=== PATIENT | male | born 1975 | race Caucasian/White ===

== ENCOUNTER 2023-08-23 19:12 | Inpatient (IN) | payer MEDICARE ==
[2023-08-23] MEDS ORDERED: Glucagon 1 MG/ML KIT IM PRN (20:17)
[2023-08-23] MEDS ORDERED: Acetaminophen 650 MG Suppository PR PRN (20:17)
[2023-08-23] MEDS ORDERED: HumaLOG 300 UNITS/3 ML VIAL SC PRN (20:17)
[2023-08-23] MEDS ORDERED: Acetaminophen 325 MG TAB PO PRN (20:17)
[2023-08-23] MEDS ORDERED: Ondansetron PF 4 MG/2 ML Vial IVP PRN (20:17)
[2023-08-23] MEDS ORDERED: Ondansetron ODT 4 MG TAB PO PRN (20:17)
[2023-08-23] MEDS ORDERED: Dextrose 5% in Water 1,000 ML IV PRN (20:17)
[2023-08-23] MEDS ORDERED: Dextrose 50% Abboject 50 ML SYRINGE SLOW IVP PRN (20:17)
[2023-08-23] MEDS: Heparin 5,000 UNITS/ML VIAL SC SCH (20:37)
[2023-08-23] MEDS: Famotidine 20 MG TAB PO SCH (20:37)
[2023-08-23] MEDS ORDERED: Sodium Chloride 0.9% 1,000 ML IV SCH (21:00)
[2023-08-23 21:49] VITALS: BMI 23.2
[2023-08-23] MEDS ORDERED: Piperacillin/Tazobactam 3.375 GM in Sodium Chloride 0.9% 100 ML IVPB SCH (22:15)
[2023-08-23] MEDS: Nicotine 14 MG PATCH TD SCH (22:29)
[2023-08-24] MEDS: Piperacillin/Tazobactam 3.375 GM in Sodium Chloride 0.9% 100 ML IVPB SCH ×3 (02:27→17:35)
[2023-08-24] MEDS ORDERED: Morphine 2 MG/ML VIAL SLOW IVP SCH (02:30)
[2023-08-24] MEDS: Vancomycin 1 GM in Premix 1 BAG IVPB SCH ×2 (02:39→14:36)
[2023-08-24] MEDS: HumaLOG 300 UNITS/3 ML VIAL SC PRN ×3 (05:45→17:35)
[2023-08-24] MEDS: HYDROcodone/Acetaminophen 5/325 mg Tablet PO PRN ×4 (06:32→23:45)
[2023-08-24 06:34] LABS: #Basophils 0.1 thou/uL (0.0-0.2); #Eosinphils 0.5 thou/uL (0.0-0.7); #Monocytes 1.7 thou/uL (0.11-0.59); #Neutrophils 7.1 thou/uL (1.40-6.50); %Eosinophils 3.8 % (0.0-10.0); %Lymphocytes 24.4 % (21.0-51.0); %Monocytes 13.8 % (0.0-10.0); %Neutrophils 56.4 % (42.0-75.0); Hematocrit 38.8 % (42.0-52.0); Hemoglobin 12.7 g/dL (14.0-18.0); Mean Corpuscular HGB CONC 32.7 g/dL (32.0-36.0); Mean Corpuscular Hemoglobin 28.5 pg (27.0-31.0); Mean Platelet Volume 9.7 fL (7.4-10.4); Platelet Count 415 10x3/uL (130-400); RBC Distribution Width 12.6 % (11.5-14.5); Red Blood Cell (RBC) Count 4.46 mill/uL (4.70-6.10); White Blood Cell (WBC) Count 12.6 10x3/uL (4.8-10.8)
[2023-08-24 06:42] LABS: Hemoglobin A1c Greater than 14.0 % (4.0-6.0)
[2023-08-24 07:02] LABS: Anion Gap 13 mmol/L (10-20); BUN (Urea Nitrogen) 12 mg/dL (8.9-20.6); Calc. Creatinine Clearance 121 mL/min (70-130); Calcium 8.3 mg/dL (7.8-10.44); Carbon Dioxide 20 mmol/L (22-29); Chloride 104 mmol/L (98-107); Estimated GFR 108; Glucose 225 mg/dL (70-105); Sodium 133 mmol/L (136-145)
[2023-08-24] MEDS: Heparin 5,000 UNITS/ML VIAL SC SCH ×3 (08:41→20:44)
[2023-08-24] MEDS: Famotidine 20 MG TAB PO SCH ×2 (08:41→20:45)
[2023-08-24] MEDS: clonazePAM 0.5 MG TAB PO PRN ×2 (14:35→23:45)
[2023-08-24] MEDS: Gabapentin 400 MG CAP PO SCH ×2 (14:35→20:44)
[2023-08-24] MEDS: Nicotine 14 MG PATCH TD SCH (20:45)
[2023-08-24] MEDS ORDERED: clonazePAM 0.5 MG TAB PO SCH (21:00)
[2023-08-24 21:20] VITALS: BP 129/79; TEMP 97.8
[2023-08-27] MEDS ORDERED: FLU VACC QS2023-24(6MOS UP)/PF 60 MCG/0.5 ML SYRINGE IM ONE (09:00)
== END 2023-08-25 00:15 | disposition short-term general hospital (02) | DRG 872 ==
LOC: T4-B 19:12 → OBSVTOIN 19:12
PROVIDERS: ADMIT Internal Medicine; ATTEND Internal Medicine
DX: A41.9 Sepsis, unspecified organism (principal); L03.116 Cellulitis of left lower limb; L03.113 Cellulitis of right upper limb; L97.529 Non-pressure chronic ulcer of other part of left foot with unspecified severity; E11.65 Type 2 diabetes mellitus with hyperglycemia; Z89.511 Acquired absence of right leg below knee; F17.210 Nicotine dependence, cigarettes, uncomplicated; E78.5 Hyperlipidemia, unspecified; I10 Essential (primary) hypertension; E11.40 Type 2 diabetes mellitus with diabetic neuropathy, unspecified; Z91.148 Patient's other noncompliance with medication regimen for other reason
CPT/HCPCS: 36415; 36416; 80048; 83036; 85025; 87040; 97139; J1644; J1815; J2272; J2543; J3370-JW; J3490; J7050